=== PATIENT | male | born 1955 | race Caucasian/White ===

== ENCOUNTER 2018-01-08 23:37 | Emergency (ER) | payer MEDICAID, OTHER ==
[2018-01-09 00:06] VITALS: BP 129/65; PULSE 81; TEMP 98.1; O2SAT 98
[2018-01-09] MEDS ORDERED: Fluorescein 1 mg Ophthalmic Strip OS STA (00:15)
[2018-01-09] MEDS ORDERED: Tetracaine 0.5% Ophth (OR ONLY) OU STA (00:15)
[2018-01-09] MEDS ORDERED: Fluorescein 1 mg Ophthalmic Strip ONE (00:18)
[2018-01-09] MEDS ORDERED: Tetracaine 0.5% Ophth (OR ONLY) ONE (00:18)
--- NOTE | 2018-01-09 00:30 | C.PDOC ---
History Of Present Illness 62 y/o male presents to the ED complaining of left eye bleeding s/p trauma earlier today. Patient states his left eye was poked accidentally by grandson s finger. Denies any visual acuity changes. He does complain of discomfort associated with foreign body sensation. He denies any pain, discharge, or other complaints. Of note, patient is on Plavix. Time Seen by Provider: 01/09/18 00:15 Chief Complaint (Nursing): Eye Problem History Per: Patient History/Exam Limitations: no limitations Onset/Duration Of Symptoms: Hrs Current Symptoms Are (Timing): Still Present Past Medical History Reviewed: Historical Data, Nursing Documentation, Vital Signs Vital Signs: Last Vital Signs Temp 98.1 F 01/08/18 23:57 Pulse 81 01/08/18 23:57 Resp 20 01/09/18 00:48 BP 129/65 01/08/18 23:57 Pulse Ox 98 01/09/18 03:55 - Medical History PMH: CAD, Gastritis, HTN, Hypercholesterolemia Denies: HIV, Chronic Kidney Disease Surgical History: Coronary Stent Family History: States: No Known Family Hx - Social History Hx Alcohol Use: Yes Hx Substance Use: No - Immunization History Hx Influenza Vaccination: No Hx Pneumococcal Vaccination: No Review Of Systems Except As Marked, All Systems Reviewed And Found Negative. Eyes: Positive for: Other (left eye bleeding + foreign body sensation). Negative for: Pain, Vision Change Physical Exam - Physical Exam Appears: Non-toxic, No Acute Distress Skin: Normal Color, Warm, Dry Head: Atraumatic, Normacephalic Eye(s): bilateral: PERRL, EOMI, right: Normal Inspection, left: Other (Left- sided conjunctival hemorrhage) Nose: Normal Oral Mucosa: Moist Neck: Normal ROM Chest: Symmetrical Respiratory: No Accessory Muscle Use Extremity: Bilateral: Atraumatic, Normal ROM Neurological/Psych: Oriented x3 Additional Physical Exam Comments: Eye exam (cont): No uptake of fluorescein ED Course And Treatment O2 Sat by Pulse Oximetry: 98 (RA) Pulse Ox Interpretation: Normal Progress Note: Discussed case w/ Dr. Pan, who agrees with plan to discharge patient home. Provided rx for Tobrex drops and advised patient to follow up with express clerk within 1-3 days. Disposition Counseled Patient/Family Regarding: Diagnosis, Need For Followup, Rx Given - Disposition Referrals: Julius Alicea MD [Staff Provider] - Disposition: HOME/ ROUTINE Disposition Time: 00:31 Condition: STABLE Additional Instructions: Follow up with Liquor Commissioner within2-3 days. Return to ED if feel worse. 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 - Scribe Statement The provider has reviewed the documentation as recorded by the Scribe (Isabel Shaffer) All medical record entries made by the Scribe were at my direction and personally dictated by me. I have reviewed the chart and agree that the record accurately reflects my personal performance of the history, physical exam, medical decision making, and the department course for this patient. I have also personally directed, reviewed, and agree with the discharge instructions and disposition.
[2018-01-09] MEDS ORDERED: Tobramycin 0.3% OPHT SOLN OS STA (00:33)
[2018-01-09 00:49] VITALS: RESP 20
== END 2018-01-09 00:48 | disposition home or self-care (01) ==
LOC: C.ER 23:37
DX: H11.32 Conjunctival hemorrhage, left eye (principal)